=== PATIENT | male | born 2000 | race Caucasian/White ===

== ENCOUNTER 2020-04-06 23:00 | Emergency (ER) | payer MEDICAID ==
[~2020-04-06] VITALS: Ht 180.3 cm; Wt 110.7 kg
--- NOTE | 2020-04-06 23:15 | NUR ---
TO TENT # 01 AMBULATORY
[2020-04-06 23:19] VITALS: BP 127/90
[2020-04-07] MEDS ORDERED: ALBUTEROL HFA MDI 90 MCG/ACTUATION 8 GM INH ONE (00:45)
[2020-04-07] MEDS ORDERED: AZITHROMYCIN 250 MG TAB PO ONE (00:45)
[2020-04-07] MEDS ORDERED: ACETAMINOPHEN EXTRA STRENGTH 500 MG TAB PO ONE (00:45)
[2020-04-07] MEDS ORDERED: AMOXIL/CLAVULANATE 875/125 MG 1 TAB PO ONE (00:45)
[2020-04-07] MEDS ORDERED: predniSONE 20 MG TAB PO ONE (00:45)
--- NOTE | 2020-04-07 00:45 | NUR ---
SEEN AND EXAMINED BY ERMD WITH ORDERS CARRIED OUT
--- NOTE | 2020-04-07 01:08 | NUR ---
SWAB DONE AND SENT TO LAB
--- NOTE | 2020-04-07 01:10 | NUR ---
MEDICATED PER ERMDS ORDER , TOLERATED WELL.
--- NOTE | 2020-04-07 02:20 | NUR ---
RESULT BACK AND NOTED BY ERMD AND FOR D/C
[2020-04-07 02:40] VITALS: BP 119/82
--- NOTE | 2020-04-07 02:40 | NUR ---
Patient discharged with v/s stable. Written and verbal after care instructions given and explained. Patient alert, oriented and verbalized understanding of instructions. Ambulatory with steady gait. All questions addressed prior to discharge. ID band removed. Patient advised to follow up with PMD. Rx of ventolin,azithromycin,augmentin,prednisone given. Patient educated on indication of medication including possible reaction and side effects. Opportunity to ask questions provided and answered.
== END 2020-04-07 02:40 | disposition home or self-care (01) ==
LOC: MED 23:00
DX: U07.1 COVID-19 (principal); R05 Cough; R50.9 Fever, unspecified
CPT/HCPCS: 71045; 99284; J3535; J7512; U0003

== ENCOUNTER 2020-06-01 21:30 | Emergency (ER) | payer SELFPAY ==
[~2020-06-01] VITALS: Ht 182.9 cm; Wt 112.9 kg
[2020-06-01 21:36] VITALS: BP 157/98
--- NOTE | 2020-06-01 21:50 | NUR ---
EKG PERFORMED IN TRIAGE, NORMAL SINUS RHYTHM , HR 95. EKG PROVIDED TO PRESTOND FOR REVIEW.
--- NOTE | 2020-06-01 21:51 | NUR ---
PT AMBULATED TO LOBBY W/ STEADY GAIT.VSS. NO ACUTE DISTRESS NOTED AT THIS TIME.
--- NOTE | 2020-06-01 22:01 | NUR ---
PT AMBULATORY TO BED #9
--- NOTE | 2020-06-01 22:10 | NUR ---
PATIENT 20 Y/O MALE BIB SELF FOR C/O R SIDED CHEST PAIN X 2 HOURS. PER PATIENT "8/10 PAIN THAT COMES AND GOES. IT HURTS MORE WHEN I BREATHE HARD." PATIENT ADMITS TO HAVING COIVD+ X 1 MONTH AGO. DENIES SOB, RESPIRATIONS ARE EVEN AND UNLABORED. PATIENT STATES PAIN RADIATES TO RIGHT SIDED RIB PAIN. NO N/V/D. SEE COMPLETE ASSESSMENT FOR FURTHER DETAILS. MEDHX: DENIES NKA
--- NOTE | 2020-06-01 22:20 | NUR ---
LABS COLLECTED AND GIVEN TO FIELD AGENT AT BEDSIDE. PATIENT PLACED ON CADRIAC MONITOR. VSS.
[2020-06-01 22:29] LABS: BASOPHILS # (AUTO) 0.2 K/uL (0.00-0.22); BASOPHILS % (AUTO) 2.8 % (0.0-2.0); EOSINOPHILS # (AUTO) 0.1 K/uL (0-0.4); EOSINOPHILS % (AUTO) 0.9 % (0.0-4.0); HEMATOCRIT 47.4 % (36-52); HEMOGLOBIN 16.1 g/dL (12.0-18.0); LYMPHOCYTES # (AUTO) 1.8 K/uL (2.0-11.5); MEAN CORPUSCULAR HEMOGLOBIN 29 pg (27-31); MEAN CORPUSCULAR HGB CONC 34 g/dL (33-37); MEAN CORPUSCULAR VOLUME 86.2 fL (80-94); MONOCYTES # (AUTO) 0.4 K/uL (0.8-1.0); NEUTROPHILS # (AUTO) 4.5 K/uL (1.8-7.7); NEUTROPHILS % (AUTO) 64.3 % (42.2-75.2); PLATELET COUNT (AUTO) 233 K/uL (140-450); RED BLOOD CELL COUNT(AUTO) 5.49 MIL/uL (4.20-6.10); RED CELL DISTRIBUTION WIDTH 13.5 % (11.6-13.7)
[2020-06-01 22:43] LABS: ALBUMIN 4.6 g/dL (3.4-5.0); ANION GAP 11.7 (8-16); CARBON DIOXIDE 29.2 mmol/L (21-32); CREATININE 1.1 mg/dL (0.6-1.3); POTASSIUM 3.9 mmol/L (3.5-5.1); TOTAL BILIRUBIN 0.3 mg/dL (0.0-1.0)
--- NOTE | 2020-06-01 22:43 | NUR ---
XRAY AT BEDSIDE.
--- NOTE | 2020-06-01 23:06 | NUR ---
Emilee schaefer in [facility] - 06/01/20 at 2306 by [facility] AT BEDSIDE FOR MEDICAL EVALUATION.
--- NOTE | 2020-06-01 23:06 | NUR ---
AT BEDSIDE FOR MEDICAL EVALUATION.
--- NOTE | 2020-06-01 23:20 | NUR ---
PATIENT REMAINS ON CARDAC MONITORING. VSS. NO DISTRESS NOTED.
--- NOTE | 2020-06-02 00:10 | NUR ---
IV removed, catheter intact and site benign. Applied folded 4x4 gauze and tape to stop bleeding.
--- NOTE | 2020-06-02 00:12 | NUR ---
Patient discharged with v/s stable. Written and verbal after care instructions given and explained. Patient alert, oriented and verbalized understanding of instructions. Ambulatory with steady gait. All questions addressed prior to discharge. ID band removed. Patient advised to follow up with PMD. Rx of ZOFRAN AND MOTRIN given. Patient educated on indication of medication including possible reaction and side effects. Opportunity to ask questions provided and answered.
== END 2020-06-02 00:12 | disposition home or self-care (01) ==
LOC: MED 21:30
DX: R07.9 Chest pain, unspecified (principal); R11.0 Nausea; Z20.828 Contact with and (suspected) exposure to other viral communicable diseases
CPT/HCPCS: 36415; 71045; 80053; 84484; 85025; 85379; 93005; 99285

== ENCOUNTER 2024-02-01 12:11 | Emergency (ER) | payer MEDICAID, OTHER ==
[~2024-02-01] VITALS: Ht 182.9 cm; Wt 110.2 kg
[2024-02-01 12:40] VITALS: BP 157/95; PULSE 110; RESP 20; TEMP 97.9; O2SAT 98
[2024-02-01 13:50] LABS: BASOPHILS % (AUTO) 0.7 % (0.0-2.0); EOSINOPHILS # (AUTO) 0.1 K/uL (0-0.4); EOSINOPHILS % (AUTO) 1.2 % (0.0-4.0); HEMATOCRIT 45.9 % (36-52); HEMOGLOBIN 15.6 g/dL (12.0-18.0); LYMPHOCYTES # (AUTO) 1.2 K/uL (2.0-11.5); LYMPHOCYTES % (AUTO) 17.2 % (20.5-51.1); MEAN CORPUSCULAR HEMOGLOBIN 30 pg (27-31); MEAN CORPUSCULAR HGB CONC 34 g/dL (33-37); MEAN CORPUSCULAR VOLUME 87.8 fL (80-94); MONOCYTES # (AUTO) 0.5 K/uL (0.8-1.0); MONOCYTES % (AUTO) 7.1 % (1.7-9.3); NEUTROPHILS % (AUTO) 73.8 % (42.2-75.2); PLATELET COUNT (AUTO) 250 K/uL (140-450); RED BLOOD CELL COUNT(AUTO) 5.23 MIL/uL (4.20-6.10); WHITE BLOOD COUNT (AUTO) 6.7 K/uL (4.8-10.8)
[2024-02-01 14:07] LABS: ANION GAP 10.9 (8-16); CALCIUM 8.6 mg/dL (8.5-10.1); CREATININE 1.2 mg/dL (0.6-1.3); POTASSIUM 3.9 mmol/L (3.5-5.1)
[2024-02-01 14:52] VITALS: BP 132/70; PULSE 87; RESP 20; TEMP 98.1; O2SAT 99
== END 2024-02-01 14:55 | disposition home or self-care (01) ==
LOC: MED 12:11
DX: R06.02 Shortness of breath (principal); R51.9 Headache, unspecified; R42 Dizziness and giddiness; M79.602 Pain in left arm
CPT/HCPCS: 36415; 71045; 80048; 84484; 85025; 85379; 93005; 99285; Q0092